=== PATIENT | male | born 1930 | race Two or more races ===

== ENCOUNTER 2020-01-26 16:01 | Emergency (ER) | payer OTHER ==
[~2020-01-26] VITALS: Ht 172.7 cm; Wt 72.6 kg
[2020-01-26] MEDS ORDERED: TAMSULOSIN HCL0.4 MG (16:28)
[2020-01-26] MEDS ORDERED: RAMIPRIL2.5 MG (16:29)
[2020-01-26] MEDS ORDERED: ATENOLOL25 MG (16:29)
[2020-01-26] MEDS ORDERED: SIMVASTATIN40 MG (16:29)
[2020-01-26] MEDS ORDERED: BAYER THERAPY325 MG PO (16:30)
[2020-01-26] MEDS ORDERED: OMEGA-31000 MG (16:30)
[2020-01-26] MEDS ORDERED: MOTION RELIEF25 MG PO (18:41)
== END 2020-01-26 18:57 | disposition home or self-care (01) ==
LOC: ER 16:01
DX: R42 Dizziness and giddiness (principal); Z03.818 Encounter for observation for suspected exposure to other biological agents ruled out